=== PATIENT | female | born 1970 | race Caucasian/White ===

== ENCOUNTER → 2024-02-13 15:06 | Outpatient (CLI) | payer OTHER, SELFPAY | LOC: RESP 15:07 | PROVIDERS: Referring Provider Internal Medicine Critical Care Medicine; Visit Provider Internal Medicine Critical Care Medicine | DX: R06.02 Shortness of breath (principal); Z87.891 Personal history of nicotine dependence; R94.2 Abnormal results of pulmonary function studies | CPT/HCPCS: 94060; 94726; 94729 ==